=== PATIENT | male | born 1965 | race Caucasian/White ===

== ENCOUNTER 2023-01-12 07:38 | Outpatient (REF) | payer BC, SELFPAY ==
[2023-01-12 11:14] LABS: MANUAL DIFF FLAG NO
[2023-01-12 11:30] LABS: Basophils Absolute Auto 0.1 X10*3/uL (0.0-0.2); Eosinophils Absolute Auto 0.3 X10*3/uL (0.0-0.4); Eosinophils Percent Auto 3.5 % (0-4); Hematocrit 48.2 % (42.0-52.0); Hemoglobin 16.3 g/dl (14.0-18.0); Imm Gran Abs Auto 0.03 X10*3/uL (0.00-0.03); Imm Gran Pct Auto 0.3 % (0.0-0.4); Lymphocytes Absolute Auto 2.5 X10*3/uL (1.2-4.9); Lymphocytes Percent Auto 26.2 % (20-40); Mean Corpuscular HGB Conc 33.8 g/dl (31.0-36.0); Mean Corpuscular Hemoglobin 29.6 pg (27.0-33.0); Mean Corpuscular Volume 87.6 fL (80.0-98.0); Mean Platelet Volume 12.1 fL (9.4-12.4); Monocytes Absolute Auto 0.6 X10*3/uL (0.1-1.2); Monocytes Percent Auto 6.4 % (2-11); Neutrophils Absolute Auto 5.9 x10*3/uL (2.0-8.3); Neutrophils Percent Auto 62.6 % (45-73); Platelet Count 217 X10*3/uL (160-400); Red Cell Distribution Width 13.2 % (11.0-16.0); White Blood Count 9.4 X10*3/uL (4.8-10.8)
[2023-01-12 11:43] LABS: Estimated Average Glucose 252 mg/dL; Hemoglobin A1c % 10.4 %
[2023-01-12 11:48] LABS: Alanine Aminotransferase 23 U/L (0-40); Albumin Level 4.4 g/dL (3.5-5.0); Alkaline Phosphatase 83 U/L (39-117); Anion Gap 12 (12-20); Aspartate Amino Transferase 15 U/L (5-37); Bilirubin Total 0.7 mg/dL (0.0-1.0); Blood Urea Nitrogen 10 mg/dL (9-16); Calcium 9.6 mg/dL (8.4-10.2); Carbon Dioxide 24 mmol/L (22-29); Chloride 103 mmol/L (96-108); Cholesterol 127 mg/dL; Estimated Glomerular Filt Rate > 60; Glucose Fasting 318 mg/dL (60-99); HDL Cholesterol 36 mg/dL; LDL Cholesterol Calculated 53 mg/dl; Potassium 4.3 mmol/L (3.3-5.1); Sodium 135 mmol/L (135-145); Triglycerides 190 mg/dL
[2023-01-12 11:52] LABS: Appearance Urine Clear; Color Urine Yellow; Glucose Urine UA >=1000 mg/dL (Negative); Leukocyte Esterase Urine Negative (Negative); Nitrite Urine Negative (Negative); PH 5.5 (5.0-9.0); Specific Gravity - Urine >= 1.030 (1.005-1.025); UMIC TRIGGER UA YES; Urine Blood Negative (Negative); Urine Ketones Negative (Negative); Urine Protein Negative (Neg-Trace)
[2023-01-12 11:55] LABS: Bacteria Urine None Seen (None Seen); Hyaline Casts Urine 0-2 /LPF (0-2); RBC Urine 0-2 /HPF (0-2); Squamous Epithelial Cell Urine 0-2 /HPF (0-2); WBC Urine 0-5 /HPF (0-5)
[2023-01-12 12:06] LABS: Prostate Specific Antigen Scr 0.46 ng/mL (<0.05-4.0); TSH reflex Free T4 1.08 uIU/mL (0.32-4.0)
[2023-01-12 12:15] LABS: Microalbum/Creatinine Ratio Ur 6.7 ug/mg cr
== END 2023-01-12 07:39 | disposition home or self-care (01) ==
LOC: HO.WFDLDS 07:38
PROVIDERS: Visit Provider Family Medicine
DX: Z00.00 Encounter for general adult medical examination without abnormal findings (principal); Z12.5 Encounter for screening for malignant neoplasm of prostate; E11.9 Type 2 diabetes mellitus without complications; I10 Essential (primary) hypertension
CPT/HCPCS: 36415; 80053; 80061; 81001; 82043; 83036; 84153; 84443; 85025

== ENCOUNTER 2023-04-01 15:31 | Outpatient (AMB) | payer BC, SELFPAY ==
[2023-04-01 15:37] VITALS: BP 124/66; PULSE 94; RESP 12; TEMP 36.6; O2SAT 99; BMI 28.3
--- NOTE | 2023-04-01 15:37 | A.OFFPC_ITS ---
Vital Signs 04/01/23 15:37 Height 5 ft 11 in Weight 203 lb BMI 28.3 BP 124/66 Blood Pressure Location Rt brachial Position Sitting Respiration 12 Pulse 94 Pulse Source Pulse Oximeter Temp 97.9 F Temp Source Temporal Artery Scan Pulse Oximetry (%) 99 Oxygen Delivery Method Room Air Intake Visit Reasons: Follow-up diabetes Intake Note: Patient does not have any concerns at this time. Beauty Sales Consultant Required: No Accompanied by: Self / Same As Patient Allergies Seasonal Allergies Allergy (Mild, Verified 04/01/23 15:49) itchy, watery eyes Tobacco use date assessed: 01/18/23 Dental Screening Dental Screen Date: 04/01/23 Did you have a dental visit in the last 12 months?: Yes Did you have a dental problem in the last 6 months where you did not have access to dental care?: No Was dental information given to patient?: Patient has dentist HPI Follow-up diabetes HPI Details 57 y/o male presents to follow up uncontrolled diabetes. Had increased his Trulicity from 1.5 to 3.0 mg weekly and added glipizide. He continues metformin as prescribed. Last A1c 10.4%. A1c today 8.5%. He tests his blood sugars. He reports he is steady at about 250 average. HPI Comments History of Present Illness Details Documentation assistance for Darek Zhou MD, was provided by Augustus Healy, Quantitative Equity Head on 04/01/2023 4:44 PM EST. I, Dr. Zhou, have read, observed, and verified documentation. [facility] Medical History No pertinent past medical history Surgical History History of tonsillectomy Family History Father Diabetes Social History Household Members: Spouse Housing: House Are you a primary progressive care unit registered nurse to a significant other at home: No Do you presently have visiting nurse or other home services: No 75 years or older and lives alone: No Alcohol intake: current Patient Tobacco Use Status: Former Tobacco user Tobacco use type: Cigarette e-Cigarette/Vaping Use: Never Used service: No Current occupational status: employed Current occupation: inventory control Current occupational exposures/hazards: No Cognitive needs: No Hearing needs: No Vision needs: No Review of Systems Const Denies chills, Denies fatigue, Denies fever(s), Denies headache(s) and Denies weakness ENT Denies dizziness and Denies headache(s) Card Denies chest pain, Denies lightheadedness, Denies dyspnea and Denies other (Palpitations) Resp Denies cough, Denies dyspnea, Denies wheezing and Denies other ( shortness of breath) Musc Denies numbness and Denies tingling Neuro Denies dizziness, Denies headache(s), Denies numbness, Denies tingling, Denies paresthesias and Denies weakness Psych Denies anxiety and Denies depression Endo Denies fatigue, Denies polydipsia and Denies polyuria Aller/Immun Denies wheezing Physical exam (Primary Care) Vital Signs: Last Vital Signs Temp 97.9 F 04/01/23 15:37 Pulse 94 04/01/23 15:37 Resp 12 04/01/23 15:37 BP 124/66 04/01/23 15:37 Pulse Ox 99 04/01/23 15:37 Oxygen Delivery Method Room Air 04/01/23 15:37 BMI result Body Mass Index 28.3 Tobacco/Smoking Status: Tobacco use Status Tobacco use date assessed 01/18/23 04/01/23 15:52 Patient Tobacco Use Status Former Tobacco user 04/01/23 15:52 Tobacco use type Cigarette 04/01/23 15:52 e-Cigarette/Vaping Use Never Used 04/01/23 15:52 Const General: no acute distress and well developed Nutritional Appearance: well nourished Orientation[facility]consciousness: [facility]: Yes normocephalic and Yes atraumatic Eyes General: appearance normal, both eyes and all related structures Pupils: Equal, round and reactive pupils present EOM: EOMs intact bilaterally Resp Effort & Inspection: normal respiratory effort Auscultation: clear to auscultation bilaterally Cardio Rate: regular rate Rhythm: regular rhythm Heart sounds: S1 normal heart sound present, S2 normal heart sound present, no gallops, no murmurs and no rubs Neuro General: patient oriented x3 and gait normal Cranial nerves: Yes Equal, round and reactive pupils present Psych Affect: normal affect Assessment and Plan Assessment & Plan (1) Diabetes type 2, controlled: Code(s): E11.9 - Type 2 diabetes mellitus without complications Plan: A1c as improved from 10.4% down to 8.5% after increasing Trulicity and adding a low dose of glipizide. Much improved but still well above goal of less than 7.0%. Morning blood sugars still around 250. Will increase glipizide ER to 5 mg daily Continue metformin and Trulicity as prescribed A1c likely not at steady state and hopefully will be closer to goal at next visit. Will get him back in a couple of months for further adjustment. Will ask nurse navigator to help with diabetic teaching and working around barriers to care. Patient notes that his makes most of the meals and is not always on board with his diabetic diet. Advised that he allow to listen in for diabetic teaching. Orders: Referrals Nurse Navigator Referral E11.9 - Type 2 diabetes mellitus without complications Medications: Changed From glipizide ER 2.5 mg PO DAILY 30 days 30 tabs 3RF To glipizide ER 5 mg PO DAILY 30 days 30 tabs 3RF Coding Level of Care Code Est Pt Level 3 (90290) Diagnoses Diabetes type 2, controlled E11.9
== END 2023-04-01 16:51 | disposition home or self-care (01) ==
PROVIDERS: PCP Family Medicine; Visit Provider Family Medicine
DX: E11.9 Type 2 diabetes mellitus without complications (principal)
CPT/HCPCS: 99213

== ENCOUNTER 2023-05-24 15:42 | Outpatient (AMB) | payer BC, SELFPAY ==
[2023-05-24 15:46] VITALS: BP 124/78; PULSE 102; O2SAT 97; BMI 28.9
--- NOTE | 2023-05-24 15:46 | MHC.PC.OV ---
Vital Signs 05/24/23 15:46 Height 5 ft 11 in Weight 207 lb BMI 28.9 BP 124/78 Blood Pressure Location Lt brachial Position Sitting Pulse 102 H Pulse Source Pulse Oximeter Pulse Oximetry (%) 97 Oxygen Delivery Method Room Air Intake Visit Reasons: Follow-up diabetes Intake Note: Patient is here to follow up on diabetes today. Allergies Seasonal Allergies Allergy (Mild, Verified 05/24/23 15:48) itchy, watery eyes Tobacco use date assessed: 01/18/23 HPI Follow-up diabetes HPI Details 57 y/o male presents to f/u diabetes. Last A1c 04/01/23 8.5%. Had increased glipizide ER to 5mg daily. He is also on metformin and Trulicity as prescribed. A1c today 05/24/23 is 7.6%. He reports blood sugars at home have been trending upwards the past week. He reports he records blood sugars from 215-250s. Pt reports ongoing L ear discomfort. [facility] Medical History No pertinent past medical history Surgical History History of tonsillectomy Family History Father Diabetes Social History Household Members: Spouse Housing: House Are you a primary patient care secretary to a significant other at home: No Do you presently have visiting nurse or other home services: No 75 years or older and lives alone: No Alcohol intake: current Patient Tobacco Use Status: Former Tobacco user Tobacco use type: Cigarette e-Cigarette/Vaping Use: Never Used service: No Current occupational status: employed Current occupation: inventory control Current occupational exposures/hazards: No Cognitive needs: No Hearing needs: No Vision needs: No Questionnaire Thrive Questionnaire Date Thrive assessed: 05/24/23 I am a: Patient What is your living situation today?: I have a steady place to live Within the past 12 months, did the food you bought not last and you didn't have the money to get more?: Never true Within the past 12 months, did you worry whether your food would run out before you got money to buy more?: Never true Do you have trouble paying for medicines?: No Do you have trouble getting transportation to medical appointments?: No Do you have trouble paying your heating and electricity bill?: No Do you have trouble taking care of your child, family member or friend?: No Do you have trouble with day-to-day activities such as bathing, preparing meals, shopping, managing finances, etc.?: No Are you currently unemployed and looking for a job?: No Are you interested in more education?: No Review of Systems Const Denies chills, Denies fatigue, Denies fever(s), Denies headache(s) and Denies weakness ENT Denies dizziness and Denies headache(s) Card Denies dyspnea Resp Denies cough, Denies dyspnea, Denies wheezing and Denies other (shortness of breath) Musc Denies numbness and Denies tingling Neuro Denies dizziness, Denies headache(s), Denies numbness, Denies tingling and Denies weakness Psych Denies anxiety and Denies depression Endo Denies fatigue Aller/Immun Denies wheezing Physical exam (Primary Care) Vital Signs: Last Vital Signs Pulse 102 H 05/24/23 15:46 BP 124/78 05/24/23 15:46 Pulse Ox 97 05/24/23 15:46 Oxygen Delivery Method Room Air 05/24/23 15:46 BMI result Body Mass Index 28.9 Tobacco/Smoking Status: Tobacco use Status Tobacco use date assessed 01/18/23 05/24/23 15:50 Patient Tobacco Use Status Former Tobacco user 05/24/23 15:50 Tobacco use type Cigarette 05/24/23 15:50 e-Cigarette/Vaping Use Never Used 05/24/23 15:50 Thrive Assessment: Date of Thrive Assessment Date Thrive assessed 05/24/23 05/24/23 15:57 Const General: well developed; No acute distress Nutritional Appearance: well nourished Orientation/consciousness: [facility]: Yes normocephalic and Yes atraumatic Eyes General: appearance normal, both eyes and all related structures Pupils: Equal, round and reactive pupils present EOM: EOMs intact bilaterally Resp Effort & Inspection: normal respiratory effort Neuro General: patient oriented x3 and gait normal Cranial nerves: Yes Equal, round and reactive pupils present Psych Affect: normal affect Results AMB Hemoglobin A1c AMB Hemoglobin A1c 7.6 % Last Edit by Silke Yung CMA on 05/24/23 16:09 Results Reviewed Results Reviewed: Laboratory Last Values Hgb A1c (Clinic) 7.6 % (4.0-6.0) H 05/24/23 16:03 Assessment and Plan Assessment & Plan (1) Diabetes type 2, controlled: Code(s): E11.9 - Type 2 diabetes mellitus without complications Plan: Improving?diabetic?control.??Goal?is?A1c?less?than?7.0%. His?morning?blood?sugars?are?around?200?still Will?increase?Trulicity?from?3.0-4.5?mg?per?week Continue?glipizide?and?metformin?as?prescribed He?would?greatly?benefit?from?diabetic?teaching.??Has?not?heard?from?the?nurse?navigator?so?I?have?made?a?new?referral.??Will?benefit?further?if?his??can?sit?in?on?that?encounter?as?she?makes?all?of?his?meals. (2) Discomfort of left ear: Code(s): H92.02 - Otalgia, left ear Plan: Still?has?irritated?skin?at?left?pinna Appears?as?mild?dermatitis Will?give?him?a?script?for?betamethasone?ointment If?not?resolved,?he?will?let?me?know?and?I?will?refer?him?to?Dermatology Orders: Orders AMB Hemoglobin A1c Today Z13.9 - Encounter for screening, unspecified Referrals Nurse Navigator Referral E11.9 - Type 2 diabetes mellitus without complications Medications: New betamethasone valerate 0.1% 1 appl topical BID PRN 15 grams 0RF skin irritation 14 days Changed From dulaglutide (Trulicity) 3 mg (0.5 mL) subcut QWEEK 28 days 2 mL 3RF To dulaglutide 4.5 mg (0.5 mL) subcut QWEEK 28 days 2 mL 3RF Coding Level of Care Code Est Pt Level 3 (56987) Diagnoses Diabetes type 2, controlled E11.9 Discomfort of left ear H92.02
== END 2023-05-24 16:17 | disposition home or self-care (01) ==
PROVIDERS: PCP Family Medicine; Visit Provider Family Medicine
DX: E11.9 Type 2 diabetes mellitus without complications (principal); H92.02 Otalgia, left ear
CPT/HCPCS: 83036; 99213

== ENCOUNTER 2023-08-23 16:18 | Outpatient (AMB) | payer BC, SELFPAY ==
[2023-08-23 16:33] VITALS: BP 126/74; PULSE 68; O2SAT 97; BMI 29.1
--- NOTE | 2023-08-23 16:33 | MHC.PC.OV ---
Vital Signs 08/23/23 16:33 Height 5 ft 11 in Weight 209 lb BMI 29.1 BP 126/74 Blood Pressure Location Lt brachial Position Sitting Pulse 68 Pulse Source Pulse Oximeter Pulse Oximetry (%) 97 Oxygen Delivery Method Room Air Intake Visit Reasons: f/u diabetes Intake Note: Patient is here to follow up on his diabetes. Allergies Seasonal Allergies Allergy (Mild, Verified 08/23/23 16:34) itchy, watery eyes Tobacco use date assessed: 08/23/23 Dental Screening Dental Screen Date: 08/23/23 Did you have a dental visit in the last 12 months?: Yes Did you have a dental problem in the last 6 months where you did not have access to dental care?: No Was dental information given to patient?: Patient has dentist HPI f/u diabetes HPI Details 57 y/o male presents to f/u diabetes. Last A1c in May 7.6% which had been improving. A1c today 08/23/23 is 8.3%. He is on metformin 1000mg b.i.d, dulaglutide 4.5mg and glipizide 5mg daily. Pt reports L ear irritation. COUNT INCLUDES [facility] Medical History No pertinent past medical history Surgical History History of tonsillectomy Family History Father Diabetes Social History Household Members: Spouse Housing: House Are you a primary family day carer to a significant other at home: No Do you presently have visiting nurse or other home services: No 75 years or older and lives alone: No Alcohol intake: current Patient Tobacco Use Status: Former Tobacco user Tobacco use type: Cigarette e-Cigarette/Vaping Use: Never Used service: No Current occupational status: employed Current occupation: inventory control Current occupational exposures/hazards: No Cognitive needs: No Hearing needs: No Vision needs: No Questionnaire PHQ-9 Over the last 2 weeks, how often have you been bothered by any of the following problems? 1. Little interest or pleasure in doing things: not at all 2. Feeling down, depressed, or hopeless: not at all 3. Trouble falling or staying asleep, or sleeping too much: not at all 4. Feeling tired or having little energy: not at all 5. Poor appetite or overeating: not at all 6. Feeling bad about yourself - or that you are a failure or have let yourself or your family down: not at all 7. Trouble concentrating on things, such as reading the newspaper or watching television: not at all 8. Moving or speaking so slowly that other people could have noticed. Or the opposite - being so fidgety or restless that you have been moving around a lot more than usual: not at all 9. Thoughts that you would be better off or of hurting yourself in some way: not at all Total score: 0 Source: Developed by Drs. Chandrakant Vela, Laurel Yeboah, Willian Carney and colleagues, with an educational charissa from [employer]. Thrive Questionnaire Date Thrive assessed: 05/24/23 I am a: Patient What is your living situation today?: I have a steady place to live Within the past 12 months, did the food you bought not last and you didn't have the money to get more?: Never true Within the past 12 months, did you worry whether your food would run out before you got money to buy more?: Never true Do you have trouble paying for medicines?: No Do you have trouble getting transportation to medical appointments?: No Do you have trouble paying your heating and electricity bill?: No Do you have trouble taking care of your child, family member or friend?: No Do you have trouble with day-to-day activities such as bathing, preparing meals, shopping, managing finances, etc.?: No Are you currently unemployed and looking for a job?: No Are you interested in more education?: No THRIVE Score: 0 AUDIT C Alcohol Use Questionnaire (AUDIT-C) 1. How often do you have a drink containing alcohol?: Monthly or less 2. How many drinks containing alcohol do you have on a typical day when you are drinking?: 3 or 4 3. How often do you have six or more drinks on one occasion?: Never Total Score: 2 YULI-7 AMB Questionnaire YULI-7 Date YULI - 7 assessed: 08/23/23 Feeling nervous, anxious, or on edge: 0 = Not at all Not being able to stop or control worryin = Not at all Worrying too much about different things: 0 = Not at all Trouble relaxin = Not at all Being so restless that it is hard to sit still: 0 = Not at all Becoming easily annoyed or irritable: 0 = Not at all Feeling afraid as if something awful might happen: 0 = Not at all Total YULI-7 score (0-4 normal; 5-9 mild; 10-14 moderate; 15-21 severe): 0 Source: Developed by Drs. Chandrakant Vela, Laurel Yeboah, Willian Carney and colleagues, with an educational charissa from [employer]. Physical exam (Primary Care) Vital Signs: Last Vital Signs Pulse 68 08/23/23 16:33 BP 126/74 08/23/23 16:33 Pulse Ox 97 08/23/23 16:33 Oxygen Delivery Method Room Air 08/23/23 16:33 BMI result Body Mass Index 29.1 Tobacco/Smoking Status: Tobacco use Status Tobacco use date assessed 08/23/23 08/23/23 16:35 Patient Tobacco Use Status Former Tobacco user 08/23/23 16:35 Tobacco use type Cigarette 08/23/23 16:35 e-Cigarette/Vaping Use Never Used 08/23/23 16:35 PHQ-9: PHQ-9 Score PHQ-9: Total score 0 08/23/23 16:41 Thrive Assessment: Date of Thrive Assessment Date Thrive assessed 05/24/23 08/23/23 16:35 Results AMB Hemoglobin A1c AMB Hemoglobin A1c 8.3 % Last Edit by Silke Yung CMA on 08/23/23 17:03 Assessment and Plan Assessment & Plan (1) Uncontrolled diabetes mellitus with hyperglycemia: Code(s): E11.65 - Type 2 diabetes mellitus with hyperglycemia Plan: A1c?has?been?improving. A1c?today?has?increased?to?8.3%. Goal?is?less?than?7.0%.??Poor/uncontrolled?diabetes?despite?multiple?medications. Will?refer?him?to?endocrinology Increased?glipizide?to?10?mg?daily?and?continued?his?other?medications?as?prescribed He?received?mail?correspondence?from?the?nurse?navigator?team?regarding?diabetes?and?I?asked?him?to?call?them?back. Last?eye?exam?was?in?May.??No?diabetic?retinopathy.??Up-to-date.?Remind?patient?to?follow-up?with?ophthalmology?each?year (2) Discomfort of left ear: Code(s): H92.02 - Otalgia, left ear Orders: Orders AMB Hemoglobin A1c Today Z13.9 - Encounter for screening, unspecified Referrals Endocrinology Referral E11.65 - Type 2 diabetes mellitus with hyperglycemia Medications: Changed From glipizide ER 5 mg PO DAILY 30 days 30 tabs 3RF To glipizide ER 10 mg PO DAILY 30 tabs 3RF 30 days Coding Level of Care Code Est Pt Level 3 (80951) Diagnoses Uncontrolled diabetes mellitus with hyperglycemia E11.65 Discomfort of left ear H92.02
== END 2023-08-23 17:01 | disposition home or self-care (01) ==
PROVIDERS: PCP Family Medicine; Visit Provider Family Medicine
DX: E11.65 Type 2 diabetes mellitus with hyperglycemia (principal); H92.02 Otalgia, left ear
CPT/HCPCS: 83036; 99213

== ENCOUNTER 2023-11-22 16:22 | Outpatient (AMB) | payer BC, SELFPAY ==
[2023-11-22 16:28] VITALS: BP 128/72; PULSE 96; O2SAT 97; BMI 28.7
--- NOTE | 2023-11-22 16:28 | MHC.PC.OV ---
Vital Signs 11/22/23 16:28 Height 5 ft 11 in Weight 206 lb BMI 28.7 BP 128/72 Blood Pressure Location Lt brachial Position Sitting Pulse 96 Pulse Source Pulse Oximeter Pulse Oximetry (%) 97 Oxygen Delivery Method Room Air Intake Visit Reasons: f/u diabetes Intake Note: Patient is here today to follow up on diabetes. Allergies Seasonal Allergies Allergy (Mild, Verified 11/22/23 16:31) itchy, watery eyes Tobacco use date assessed: 08/23/23 Dental Screening Dental Screen Date: 11/22/23 HPI f/u diabetes HPI Details 58 y/o male presents to f/u diabetes. Had increased his glipizide ER from 5mg daily to 10mg daily and continued his other meds as prescribed. Last A1c 08/23/23 8.3%. A1c today 11/22/23 is 7.5%. He is on metformin 1000mg, glipizide 10mg, dulaglutide 4.5mg. Pt also on lantus 14 units daily. Pt notes daytime blood sugars range from 160-200s. He denies any low blood sugars. [facility] Medical History No pertinent past medical history Surgical History History of tonsillectomy Family History Father Diabetes Social History Household Members: Spouse Housing: House Are you a primary career technical education teacher to a significant other at home: No Do you presently have visiting nurse or other home services: No 75 years or older and lives alone: No Alcohol intake: current Patient Tobacco Use Status: Former Tobacco user Tobacco use type: Cigarette e-Cigarette/Vaping Use: Never Used service: No Current occupational status: employed Current occupation: inventory control Current occupational exposures/hazards: No Cognitive needs: No Hearing needs: No Vision needs: No Questionnaire Thrive Questionnaire Date Thrive assessed: 05/24/23 YULI-7 AMB Questionnaire YULI-7 Date YULI - 7 assessed: 08/23/23 Source: Developed by Drs. Chandrakant Vela, Laurel Yeboah, Willian Carney and colleagues, with an educational charissa from [employer]. Review of Systems Const Denies chills, Denies fatigue, Denies fever(s), Denies headache(s) and Denies weakness ENT Denies dizziness and Denies headache(s) Card Denies chest pain, Denies lightheadedness, Denies dyspnea and Denies other (Palpitations) Resp Denies cough, Denies dyspnea, Denies wheezing and Denies other ( shortness of breath) Musc Denies numbness and Denies tingling Neuro Denies dizziness, Denies headache(s), Denies numbness, Denies tingling, Denies paresthesias and Denies weakness Psych Denies anxiety and Denies depression Endo Denies fatigue Aller/Immun Denies wheezing Physical exam (Primary Care) Vital Signs: Last Vital Signs Pulse 96 11/22/23 16:28 BP 128/72 11/22/23 16:28 Pulse Ox 97 11/22/23 16:28 Oxygen Delivery Method Room Air 11/22/23 16:28 BMI result Body Mass Index 28.7 Tobacco/Smoking Status: Tobacco use Status Tobacco use date assessed 08/23/23 11/22/23 16:30 Patient Tobacco Use Status Former Tobacco user 11/22/23 16:30 Tobacco use type Cigarette 11/22/23 16:30 e-Cigarette/Vaping Use Never Used 11/22/23 16:30 Thrive Assessment: Date of Thrive Assessment Date Thrive assessed 05/24/23 11/22/23 16:30 Const General: no acute distress and well developed Nutritional Appearance: well nourished Orientation/consciousness: patient oriented x3 [facility] Head: Yes normocephalic and Yes atraumatic Eyes General: appearance normal, both eyes and all related structures Pupils: Equal, round and reactive pupils present EOM: EOMs intact bilaterally Resp Effort & Inspection: normal respiratory effort Auscultation: clear to auscultation bilaterally Cardio Rate: regular rate Rhythm: regular rhythm Heart sounds: S1 normal heart sound present, S2 normal heart sound present, no gallops, no murmurs and no rubs Neuro General: patient oriented x3 and gait normal Cranial nerves: Yes Equal, round and reactive pupils present Psych Affect: normal affect Results AMB Hemoglobin A1c AMB Hemoglobin A1c 7.5 % Last Edit by Silke Yung CMA on 11/22/23 17:02 Results Reviewed Results Reviewed: Laboratory Last Values Hgb A1c (Clinic) 7.5 % (4.0-6.0) H 11/22/23 16:33 Assessment and Plan Assessment & Plan (1) Diabetes type 2, controlled: Code(s): E11.9 - Type 2 diabetes mellitus without complications Plan: A1c?is?heading?in?the?right?direction;?7.5%.??Goal?is?less?than?7.0% Taking?all?medications?as?prescribed?and?recently?saw?his?all source collection manager. Morning?blood?sugars?are?still?high?and?he?never?has?low?blood?sugars. I?am?having?him?increase?his?Lantus?from?14?units?daily?to?16?units?daily?and?continuing?his?other?medications?as?prescribed. He?has?an?upcoming?appointment?with?endocrinology?next?month. Encouraged?diabetic?diet Briefly?discussed?Lexus?system?and?patient?says?he?discussed?this?with?the?all source collection manager?and?is?still?thinking?about?it. Orders: Orders AMB Hemoglobin A1c Today Z13.9 - Encounter for screening, unspecified Medications: New insulin glargine (Lantus Solostar U-100 Insulin) 16 units (0.16 mL) subcut QPM 30 days 6 mL 0RF Coding Level of Care Code Est Pt Level 3 (86248) Diagnoses Diabetes type 2, controlled E11.9
== END 2023-11-22 17:16 | disposition home or self-care (01) ==
PROVIDERS: PCP Family Medicine; Visit Provider Family Medicine
DX: E11.9 Type 2 diabetes mellitus without complications (principal)
CPT/HCPCS: 83036; 99213

== ENCOUNTER 2024-02-21 16:16 | Outpatient (AMB) | payer BC, SELFPAY ==
[2024-02-21 16:18] VITALS: BP 108/70; PULSE 101; O2SAT 97; BMI 28.4
--- NOTE | 2024-02-21 16:18 | A.OFFPC_ITS ---
Vital Signs 02/21/24 16:18 Height 5 ft 11 in Weight 204 lb BMI 28.4 BP 108/70 Blood Pressure Location Lt brachial Position Sitting Pulse 101 H Pulse Source Pulse Oximeter Pulse Oximetry (%) 97 Oxygen Delivery Method Room Air Intake Visit Reasons: f/u diabetes Intake Note: Jose is a 58 year old male who presents to the office today for a follow up on his diabetes. A1C done in the office. Pt states he is overall feeling well. Allergies Seasonal Allergies Allergy (Mild, Verified 02/21/24 16:21) itchy, watery eyes Medication List - Last Reconciled 02/21/24 by Darek Zhou MD atorvastatin 20 mg PO DAILY 90 days betamethasone valerate 0.1% 1 appl topical BID PRN 14 days glipizide ER 10 mg PO DAILY 30 days insulin glargine (Lantus Solostar U-100 Insulin) 16 units (0.16 mL) subcut QPM 30 days loratadine (Allergy Relief (loratadine)) 10 mg PO DAILY 90 days metformin ER 1,000 mg (2 x 500 mg) PO BID 90 days semaglutide (Ozempic) 2 mg (0.75 mL) subcut QWEEK 28 days Tobacco use date assessed: 02/21/24 Dental Screening Dental Screen Date: 02/21/24 Did you have a dental visit in the last 12 months?: Yes Did you have a dental problem in the last 6 months where you did not have access to dental care?: No Was dental information given to patient?: Patient has dentist HPI f/u diabetes HPI Details 58 y/o male presents to f/u diabetes. Had increased his Lantus from 14 units daily to 16 units daily. Last A1c 11/22/23 7.5%. A1c today 02/21/24 6.3%. Continues to take metformin 500mg b.i.d, Ozempic, Lantus 16 units. He states he is tolerating his medication regimen well. HPI Comments History of Present Illness Details Documentation assistance for Darek Zhou MD, was provided by Augustus Healy, Reconciling Clerk on 02/21/2024 at 4:47 PM EST. I, Dr. Zhou, have read, observed, and verified documentation. [facility] Medical History No pertinent past medical history Surgical History History of tonsillectomy Family History Father Diabetes Social History Household Members: Spouse Housing: House Are you a primary pharmacy care coordinator to a significant other at home: No Do you presently have visiting nurse or other home services: No 75 years or older and lives alone: No Alcohol intake: current Patient Tobacco Use Status: Former Tobacco user Tobacco use type: Cigarette e-Cigarette/Vaping Use: Never Used service: No Current occupational status: employed Current occupation: inventory control Current occupational exposures/hazards: No Cognitive needs: No Hearing needs: No Vision needs: No Questionnaire PHQ-9 Over the last 2 weeks, how often have you been bothered by any of the following problems? 1. Little interest or pleasure in doing things: not at all 2. Feeling down, depressed, or hopeless: not at all 3. Trouble falling or staying asleep, or sleeping too much: not at all 4. Feeling tired or having little energy: not at all 5. Poor appetite or overeating: not at all 6. Feeling bad about yourself - or that you are a failure or have let yourself or your family down: not at all 7. Trouble concentrating on things, such as reading the newspaper or watching te levision: not at all 8. Moving or speaking so slowly that other people could have noticed. Or the opposite - being so fidgety or restless that you have been moving around a lot more than usual: not at all 9. Thoughts that you would be better off or of hurting yourself in some way: not at all Total score: 0 Source: Developed by Drs. Chandrakant Vela, Laurel Yeboah, Willian Carney and colleagues, with an educational charissa from [employer]. Thrive Questionnaire Date Thrive assessed: 02/21/24 I am a: Patient What is your living situation today?: I have a steady place to live Within the past 12 months, did the food you bought not last and you didn't have the money to get more?: Never true Within the past 12 months, did you worry whether your food would run out before you got money to buy more?: Never true Do you have trouble paying for medicines?: No Do you have trouble getting transportation to medical appointments?: No Do you have trouble paying your heating and electricity bill?: No Do you have trouble taking care of your child, family member or friend?: No Do you have trouble with day-to-day activities such as bathing, preparing meals, shopping, managing finances, etc.?: No Are you currently unemployed and looking for a job?: No Are you interested in more education?: No THRIVE Score: 0 AUDIT C Alcohol Use Questionnaire (AUDIT-C) 1. How often do you have a drink containing alcohol?: Monthly or less 2. How many drinks containing alcohol do you have on a typical day when you are drinking?: 3 or 4 3. How often do you have six or more drinks on one occasion?: Never Total Score: 2 YULI-7 AMB Questionnaire YULI-7 Date YULI - 7 assessed: 02/21/24 Feeling nervous, anxious, or on edge: 0 = Not at all Not being able to stop or control worryin = Not at all Worrying too much about different things: 0 = Not at all Trouble relaxin = Not at all Being so restless that it is hard to sit still: 0 = Not at all Becoming easily annoyed or irritable: 0 = Not at all Feeling afraid as if something awful might happen: 0 = Not at all Total YULI-7 score (0-4 normal; 5-9 mild; 10-14 moderate; 15-21 severe): 0 Source: Developed by Drs. Chandrakant Vela, Laurel Yeboah, Willian Carney and colleagues, with an educational charissa from [employer]. Review of Systems Const Denies chills, Denies fatigue, Denies fever(s), Denies headache(s) and Denies weakness ENT Denies dizziness and Denies headache(s) Card Denies dyspnea Resp Denies cough, Denies dyspnea, Denies wheezing and Denies other (shortness of breath) Musc Denies numbness and Denies tingling Neuro Denies dizziness, Denies headache(s), Denies numbness, Denies tingling and Denies weakness Psych Denies anxiety and Denies depression Endo Denies fatigue Aller/Immun Denies wheezing Physical exam (Primary Care) Vital Signs: Last Vital Signs Pulse 101 H 02/21/24 16:18 BP 108/70 02/21/24 16:18 Pulse Ox 97 02/21/24 16:18 Oxygen Delivery Method Room Air 02/21/24 16:18 BMI result Body Mass Index 28.4 Tobacco/Smoking Status: Tobacco use Status Tobacco use date assessed 02/21/24 02/21/24 16:25 Patient Tobacco Use Status Former Tobacco user 02/21/24 16:18 Tobacco use type Cigarette 02/21/24 16:18 e-Cigarette/Vaping Use Never Used 02/21/24 16:18 PHQ-9: PHQ-9 Score PHQ-9: Total score 0 02/21/24 16:44 Thrive Assessment: Date of Thrive Assessment Date Thrive assessed 02/21/24 02/21/24 16:25 Const General: well developed; No acute distress Nutritional Appearance: well nourished Orientation/consciousness: patient oriented x3 HENMT Head: Yes normocephalic and Yes atraumatic Eyes General: appearance normal, both eyes and all related structures Pupils: Equal, round and reactive pupils present EOM: EOMs intact bilaterally Resp Effort & Inspection: normal respiratory effort Neuro General: patient oriented x3 and gait normal Cranial nerves: Yes Equal, round and reactive pupils present Psych Affect: normal affect Results AMB Hemoglobin A1c AMB Hemoglobin A1c 6.3 % Last Edit by Mildred Rodriguez CMA on 02/21/24 16:34 Results Reviewed Results Reviewed: Laboratory Last Values Hgb A1c (Clinic) 6.3 % (4.0-6.0) H 02/21/24 16:33 Assessment and Plan Assessment & Plan (1) Diabetes type 2, controlled: Code(s): E11.9 - Type 2 diabetes mellitus without complications Plan: A1c?today?6.3%.??Goal?is?less?than?7.0% Good?control Continue?current?medication?regimen Encouraged?exercise He?is?a?little?overdue?for?an?eye?exam?and?I?reminded?him?to?call?his?eye?doctor . Follow-up?with??[facility]?recommended Orders: Orders AMB Hemoglobin A1c Today E11.65 - Type 2 diabetes mellitus with hyperglycemia Comprehensive [place]. Panel Fast Today Z00.00 - Encounter for general adult medical examination without abnormal findings Lipid Panel Today Z00.00 - Encounter for general adult medical examination without abnormal findings Prostate Specific Antigen Scr Today Z12.5 - Encounter for screening for malignant neoplasm of prostate UA and rflx microscopic Today Z00.00 - Encounter for general adult medical examination without abnormal findings Microalbumin, Random (w Creat) Today I10 - Essential (primary) hypertension TSH reflex Free T4 Today Z00.00 - Encounter for general adult medical examination without abnormal findings Medications: Changed From insulin glargine (Lantus Solostar U-100 Insulin) 16 units (0.16 mL) subcut QPM 30 days 6 mL 0RF To insulin glargine (Lantus Solostar U-100 Insulin) 20 units (0.2 mL) subcut QPM 30 days 6 mL 0RF Coding Level of Care Code Est Pt Level 3 (19799) Diagnoses Diabetes type 2, controlled E11.9
== END 2024-02-21 17:04 | disposition home or self-care (01) ==
PROVIDERS: PCP Family Medicine; Visit Provider Family Medicine
DX: E11.9 Type 2 diabetes mellitus without complications (principal); E11.65 Type 2 diabetes mellitus with hyperglycemia
CPT/HCPCS: 83036; 99213

== ENCOUNTER 2024-06-08 07:41 | Outpatient (REF) | payer BC, SELFPAY ==
[2024-06-08 11:31] LABS: Appearance Urine Clear; Color Urine Yellow; Glucose Urine UA Negative (Negative); Leukocyte Esterase Urine Negative (Negative); Nitrite Urine Negative (Negative); PH 6.5 (5.0-9.0); Urine Blood Negative (Negative); Urine Ketones Negative (Negative); Urine Protein Negative (Neg-Trace)
[2024-06-08 12:06] LABS: Alanine Aminotransferase 18 U/L (0-40); Albumin Level 4.5 g/dL (3.5-5.0); Alkaline Phosphatase 61 U/L (39-117); Anion Gap 15 (12-20); Aspartate Amino Transferase 24 U/L (5-37); Bilirubin Total 0.6 mg/dL (0.0-1.0); Blood Urea Nitrogen 10 mg/dL (9-16); Calcium 9.8 mg/dL (8.4-10.2); Carbon Dioxide 24 mmol/L (22-29); Chloride 104 mmol/L (96-108); Cholesterol 109 mg/dL (<200); Estimated Glomerular Filt Rate > 60; Glucose Fasting 125 mg/dL (60-99); HDL Cholesterol 34 mg/dL (>40); LDL Cholesterol Calculated 54 mg/dL (<100); Potassium 4.5 mmol/L (3.3-5.1); Sodium 138 mmol/L (135-145); Total Protein 7.3 g/dL (6.5-8.0); Triglycerides 105 mg/dL (<150)
[2024-06-08 12:11] LABS: Prostate Specific Antigen Scr 0.33 ng/mL (<0.05-4.0)
[2024-06-08 12:13] LABS: Creatinine Urine 33.43 mg/dL; Microalbumin Urine < 5.0 mg/L
[2024-06-08 12:26] LABS: TSH reflex Free T4 1.38 uIU/mL (0.32-4.0)
== END 2024-06-08 07:42 | disposition home or self-care (01) ==
LOC: HO.WFDLDS 07:41
PROVIDERS: Visit Provider Family Medicine
DX: Z00.00 Encounter for general adult medical examination without abnormal findings (principal); I10 Essential (primary) hypertension; Z12.5 Encounter for screening for malignant neoplasm of prostate
CPT/HCPCS: 36415; 80053; 80061; 81003; 82043; 82570; 84153; 84443

== ENCOUNTER 2024-06-15 16:06 | Outpatient (AMB) | payer BC, SELFPAY ==
--- NOTE | 2024-06-15 16:16 | A.OFFPC_ITS ---
Vital Signs 06/15/24 16:22 Height 5 ft 11 in Weight 204 lb 6 oz BMI 28.5 BP 102/70 Blood Pressure Location Rt brachial Position Sitting Pulse 92 Pulse Source Pulse Oximeter Pulse Oximetry (%) 97 Oxygen Delivery Method Room Air Intake Visit Reasons: CPE with f/u labs and health maint. 30 mins Intake Note: Physical. Needs a refill on Ozempic he is having trouble getting refills on time. Composition Molder Required: No Allergies Seasonal Allergies Allergy (Mild, Verified 06/15/24 16:16) itchy, watery eyes Tobacco use date assessed: 02/21/24 Dental Screening Dental Screen Date: 02/21/24 HPI HPI Comments History of Present Illness Details This is a 58-year-old male with a past medical history of type 2 di abetes and hyperlipidemia presenting for a physical exam. Type II diabetes-followed by [facility] endocrinology. His fasting blood sugars have been 120 or less. He is compliant with his medications. His most recent hemoglobin A1c was 6.3%. He is seeing his diesel pile hammer operator at the end of the month, and he says they would like him to do the A1c there. He needs refills on Ozempic. He admits he could be exercising more, but he is following a healthy diet. Colonoscopy done in April at [facility]. Due to suboptimal prep they recommended repeat in 5 years, per patient. Patient received Tdap vaccine today. He will schedule the pneumonia vaccine at his pharmacy. He received the influenza vaccine and COVID-19 booster. Hyperlipidemia is treated with atorvastatin 20 mg daily. LDL is under 100. Patient is a nonsmoker. ROS: Constitutional: No unexplained weight loss, fever, chills, fatigue or night sweats. Eyes: No vision changes, blurry vision, double vision, eye pain, eye redness, eye discharge. ENT: No hearing loss, sneezing, congestion, runny nose or sore throat. Respiratory: No shortness of breath, cough or sputum production. Cardiovascular: No chest pain, chest pressure or chest discomfort. No palpitations or pedal edema. Gastrointestinal: No anorexia, nausea, vomiting or diarrhea. No abdominal pain or blood in stool. Genitourinary: No dysuria, hematuria, urinary frequency. Neurologic: No headache, dizziness, syncope, unilateral weakness, ataxia, numbness or tingling in the extremities. Musculoskeletal: No muscle pain, back pain or swelling. +Minor aches and pains. Hematologic/Lymphatics: No bleeding or bruising. No painful lymph nodes. Skin: No rash or itching. Endocrine: No cold or heat intolerance. No polyuria or polydipsia. Psychiatric: No depression or anxiety. No SI/HI. Physical exam: Constitutional: Alert, in no distress. Head: Normocephalic. Eyes: Pupils are equal, round and reactive to light. Extraocular muscles intact. Ear, Nose and Throat: Canals clear. TMs normal. Normal nasal mucosa. No nasal discharge. No oral lesions. Neck: Supple, Full range of motion. No lymphadenopathy. No palpable thyroid masses. Respiratory: Clear to auscultation. Cardiovascular: S1 S2 regular. No murmurs. No carotid bruits. Gastrointestinal: Abdomen soft, non-tender, non-distended. Normal bowel sounds. No palpable masses. Genitourinary: Deferred. Neurologic: No focal neurological deficits. Symmetric patellar reflexes. Moves all extremities spontaneously. Sensation intact bilaterally. Skin: No rashes Musculoskeletal: No gross deformities. Normal range of motion. Extremities: Warm and well perfused. No clubbing, cyanosis or edema. 3+ peripheral pulses bilaterally. Psychiatric: Normal mood and affect [facility] Medical History (Updated 06/15/24 @ 16:53 by ROBBIE Kendall) Uncontrolled diabetes mellitus with hyperglycemia No pertinent past medical history Surgical History History of tonsillectomy Family History Father Diabetes Social History Household Members: Spouse Housing: House Are you a primary care specialist to a significant other at home: No Do you presently have visiting nurse or other home services: No 75 years or older and lives alone: No Alcohol intake: current Patient Tobacco Use Status: Former Tobacco user Tobacco use type: Cigarette e-Cigarette/Vaping Use: Never Used service: No Current occupational status: employed Current occupation: inventory control Current occupational exposures/hazards: No Cognitive needs: No Hearing needs: No Vision needs: No Questionnaire PHQ-9 Over the last 2 weeks, how often have you been bothered by any of the following problems? 1. Little interest or pleasure in doing things: not at all 2. Feeling down, depressed, or hopeless: not at all 3. Trouble falling or staying asleep, or sleeping too much: not at all 4. Feeling tired or having little energy: not at all 5. Poor appetite or overeating: not at all 6. Feeling bad about yourself - or that you are a failure or have let yourself or your family down: not at all 7. Trouble concentrating on things, such as reading the newspaper or watching television: not at all 8. Moving or speaking so slowly that other people could have noticed. Or the opposite - being so fidgety or restless that you have been moving around a lot more than usual: not at all 9. Thoughts that you would be better off or of hurting yourself in some way: not at all Total score: 0 Source: Developed by Drs. Chandrakant Vela, Laurel Yeboah, Willian Carney and colleagues, with an educational charissa from [employer]. Thrive Questionnaire Date Thrive assessed: 06/12/24 I am a: Patient What is your living situation today?: I have a steady place to live Within the past 12 months, did the food you bought not last and you didn't have the money to get more?: Never true Within the past 12 months, did you worry whether your food would run out before you got money to buy more?: Never true Do you have trouble paying for medicines?: No Do you have trouble getting transportation to medical appointments?: No Do you have trouble paying your heating and electricity bill?: No Do you have trouble taking care of your child, family member or friend?: No Do you have trouble with day-to-day activities such as bathing, preparing meals, shopping, managing finances, etc.?: No Are you currently unemployed and looking for a job?: No Are you interested in more education?: No Please select the resources that you would like help with: None Currently or been in a relationship where the following occur: No concerns reported THRIVE Score: 0 AUDIT C Alcohol Use Questionnaire (AUDIT-C) 1. How often do you have a drink containing alcohol?: 2-4 times a month 2. How many drinks containing alcohol do you have on a typical day when you are drinking?: 3 or 4 Total Score: 3 YULI-7 AMB Questionnaire YULI-7 Date YULI - 7 assessed: 02/21/24 Feeling nervous, anxious, or on edge: 0 = Not at all Not being able to stop or control worryin = Not at all Worrying too much about different things: 0 = Not at all Trouble relaxin = Not at all Being so restless that it is hard to sit still: 0 = Not at all Becoming easily annoyed or irritable: 0 = Not at all Feeling afraid as if something awful might happen: 0 = Not at all Total YULI-7 score (0-4 normal; 5-9 mild; 10-14 moderate; 15-21 severe): 0 Source: Developed by Drs. Chandrakant Vela, Laurel Yeboah, Willian Carney and colleagues, with an educational charissa from [employer]. Physical exam (Primary Care) Vital Signs: Last Vital Signs Pulse 92 06/15/24 16:22 BP 102/70 06/15/24 16:22 Pulse Ox 97 06/15/24 16:22 Oxygen Delivery Method Room Air 06/15/24 16:22 BMI result Body Mass Index 28.5 Tobacco/Smoking Status: Tobacco use Status Tobacco use date assessed 02/21/24 06/15/24 16:19 Patient Tobacco Use Status Former Tobacco user 06/15/24 16:19 Tobacco use type Cigarette 06/15/24 16:19 e-Cigarette/Vaping Use Never Used 06/15/24 16:19 PHQ-9: PHQ-9 Score PHQ-9: Total score 0 06/15/24 16:19 Thrive Assessment: Date of Thrive Assessment Date Thrive assessed 06/12/24 06/15/24 16:19 Currently or been in a relationship where the following occur: No concerns reported Coding Level of Care Code Est Pt Prev Care 40-64y(51527) Diagnoses Routine physical examination Z00.00 Assessment & Plan Assessment & Plan (1) Routine physical examination: Code(s): Z00.00 - Encounter for general adult medical examination without abnormal findings Plan Patient is seen today for a routine physical. As part of this visit we reviewed the following issues, which are considered and essential part of preventative health in this age group: - Screening for colon cancer - Discussed Prostate cancer screening - Blood pressure screening - Cholesterol screening - Nutritional and exercise counseling - Counseling of injury prevention including fire prevention, smoke alarms and seat belt usage - Screening for depression - Education about skin cancer - Recommendations about immunizations - Recommendation of an eye exam - Screening for substance abuse Follow up in 6 months for a medication review. Orders: Orders TDaP Immunization Today Z23 - Encounter for immunization Medications: New Boostrix Tdap (diphth,pertus(acell),tetanus) 0.5 mL IM ONCE 0.5 mL 0RF NS Z23 - Encounter for immunization Refilled semaglutide (Ozempic) 2 mg (0.75 mL) subcut QWEEK 28 days 3 mL 5RF
[2024-06-15 16:22] VITALS: BP 102/70; PULSE 92; O2SAT 97; BMI 28.5
== END 2024-06-15 16:55 | disposition home or self-care (01) ==
PROVIDERS: PCP Family Medicine; Visit Provider Physician Assistant Medical
DX: Z23 Encounter for immunization (principal); Z00.00 Encounter for general adult medical examination without abnormal findings

== ENCOUNTER → 2024-06-15 16:06 | Outpatient (BNVA) | payer BC, SELFPAY | PROVIDERS: PCP Family Medicine; Visit Provider Physician Assistant Medical | DX: Z00.00 Encounter for general adult medical examination without abnormal findings (principal); Z23 Encounter for immunization | CPT/HCPCS: 90471; 90715; 96127 ==

== ENCOUNTER 2024-12-14 14:55 | Outpatient (AMB) | payer BC, SELFPAY ==
--- NOTE | 2024-12-14 15:06 | A.OFFPC_ITS ---
Vital Signs 12/14/24 15:10 Height 5 ft 11 in Weight 205 lb 2 oz BMI 28.6 BP 120/70 Blood Pressure Location Lt brachial Position Sitting Pulse 98 Pulse Source Pulse Oximeter Temp 97.9 F Temp Source Temporal Artery Scan Pulse Oximetry (%) 97 Oxygen Delivery Method Room Air Intake Visit Reasons: [facility] from [facility] /med review Intake Note: Transfer of Care. Medication Review. Allergies Seasonal Allergies Allergy (Mild, Verified 12/14/24 15:08) itchy, watery eyes Medication List - Last Reconciled 12/14/24 by ROBBIE Kendall atorvastatin 20 mg PO DAILY 90 days betamethasone valerate 0.1% 1 appl topical BID PRN 14 days glipizide ER 10 mg PO DAILY 30 days insulin glargine (Lantus Solostar U-100 Insulin) 22 units subcut QPM loratadine (Allergy Relief (loratadine)) 10 mg PO DAILY 90 days metformin ER 1,000 mg (2 x 500 mg) PO BID 90 days semaglutide (Ozempic) 2 mg (0.75 mL) subcut QWEEK 28 days Tobacco use date assessed: 12/14/24 Dental Screening Dental Screen Date: 12/14/24 Did you have a dental visit in the last 12 months?: Yes Did you have a dental problem in the last 6 months where you did not have access to dental care?: No Was dental information given to patient?: Patient has dentist HPI HPI Comments History of Present Illness Details This is a 59-year-old male with a past medical history of type 2 diabetes and hyperlipidemia presenting for a visit to [facility] care. Type II diabetes-followed by [facility] endocrinology. He is compliant with his medications. His most recent hemoglobin A1c was 6.3%. Exercising and following a healthy diet. Checks glucose in the morning (97-125) and noon (highest 120) and sometimes in the evening (average 180-210). No known micro/macrovascular complications. No hypertension. Colonoscopy done in April at [facility]. Due to suboptimal prep they recommended repeat in 5 years, per patient. I recommended pneumonia vaccine. He received the influenza vaccine and COVID-19 booster. Hyperlipidemia is treated with atorvastatin 20 mg daily. LDL is under 100. Patient is a nonsmoker. ROS: Constitutional: No unexplained weight loss, fever, chills, fatigue or night sweats. Eyes: No vision changes, blurry vision, double vision Respiratory: No shortness of breath, cough or sputum production. Cardiovascular: No chest pain, chest pressure or chest discomfort. No palpitations or pedal edema. Gastrointestinal: No anorexia, nausea, vomiting or diarrhea. No abdominal pain or blood in stool. Neurologic: No headache, dizziness or numbness or tingling in extremities. Endocrine: No cold or heat intolerance. No polyuria or polydipsia. Psychiatric: No depression or anxiety. No SI/HI. Physical exam: Constitutional: Alert, in no distress. Neck: Supple, Full range of motion. No lymphadenopathy. No palpable thyroid masses. Respiratory: Clear to auscultation. Cardiovascular: S1 S2 regular. No murmurs. . Extremities: Warm and well perfused. No clubbing, cyanosis or edema. Psychiatric: Normal mood and affect [facility] Medical History (Updated 06/15/24 @ 16:53 by ROBBIE Kendall) Uncontrolled diabetes mellitus with hyperglycemia No pertinent past medical history Surgical History History of tonsillectomy Family History (Updated 12/14/24 @ 15:10 by Judit Garsia MA) Father Diabetes Social History (Updated 12/14/24 @ 15:10 by Judit Garsia MA) Household Members: Spouse Housing: House Are you a primary managed care specialist to a significant other at home: No Do you presently have visiting nurse or other home services: No 75 years or older and lives alone: No Alcohol intake: current Patient Tobacco Use Status: Former Tobacco user Tobacco use type: Cigarette e-Cigarette/Vaping Use: Never Used Second Hand Smoke Exposure: No service: No Current occupational status: employed Current occupation: inventory control Current occupational exposures/hazards: No Cognitive needs: No Hearing needs: No Vision needs: No Questionnaire PHQ-9 Over the last 2 weeks, how often have you been bothered by any of the following problems? 1. Little interest or pleasure in doing things: not at all 2. Feeling down, depressed, or hopeless: not at all 3. Trouble falling or staying asleep, or sleeping too much: not at all 4. Feeling tired or having little energy: not at all 5. Poor appetite or overeating: not at all 6. Feeling bad about yourself - or that you are a failure or have let yourself or your family down: not at all 7. Trouble concentrating on things, such as reading the newspaper or watching television: not at all 8. Moving or speaking so slowly that other people could have noticed. Or the opposite - being so fidgety or restless that you have been moving around a lot more than usual: not at all 9. Thoughts that you would be better off or of hurting yourself in some way: not at all Total score: 0 Depression Screening Interpretation: Negative Depression Screening Done: Yes 18126 - PHQ-9 Billing: Yes Source: Developed by Drs. Chandrakant Vela, Laurel Yeboah, Willian Carney and colleagues, with an educational charissa from [employer]. Thrive Questionnaire Date Thrive assessed: 12/14/24 I am a: Patient What is your living situation today?: I have a steady place to live Within the past 12 months, did the food you bought not last and you didn't have the money to get more?: Never true Within the past 12 months, did you worry whether your food would run out before you got money to buy more?: Never true Do you have trouble paying for medicines?: No Do you have trouble getting transportation to medical appointments?: No Do you have trouble paying your heating and electricity bill?: No Do you have trouble taking care of your child, family member or friend?: No Do you have trouble with day-to-day activities such as bathing, preparing meals, shopping, managing finances, etc.?: No Are you currently unemployed and looking for a job?: No Are you interested in more education?: No Please select the resources that you would like help with: None Currently or been in a relationship where the following occur: No concerns reported THRIVE Score: 0 AUDIT C Alcohol Use Questionnaire (AUDIT-C) 1. How often do you have a drink containing alcohol?: 2-4 times a month 2. How many drinks containing alcohol do you have on a typical day when you are drinking?: 1 or 2 3. How often do you have six or more drinks on one occasion?: Monthly Total Score: 4 Score Reviewed/Action Taken: No YULI-7 AMB Questionnaire YULI-7 Date YULI - 7 assessed: 12/14/24 Feeling nervous, anxious, or on edge: 0 = Not at all Not being able to stop or control worryin = Not at all Worrying too much about different things: 0 = Not at all Trouble relaxin = Not at all Being so restless that it is hard to sit still: 0 = Not at all Becoming easily annoyed or irritable: 0 = Not at all Feeling afraid as if something awful might happen: 0 = Not at all Total YULI-7 score (0-4 normal; 5-9 mild; 10-14 moderate; 15-21 severe): 0 Source: Developed by Drs. Chandrakant Vela, Laurel Yeboah, Willian Carney and colleagues, with an educational charissa from [employer]. YULI-7 Assessment Billing YULI-7 Assessment Tool: YULI-7 Assessment 67503 Physical exam (Primary Care) Vital Signs: Last Vital Signs Temp 97.9 F 12/14/24 15:10 Pulse 98 12/14/24 15:10 BP 120/70 12/14/24 15:10 Pulse Ox 97 12/14/24 15:10 Oxygen Delivery Method Room Air 12/14/24 15:10 BMI result Body Mass Index 28.6 Tobacco/Smoking Status: Tobacco use Status Tobacco use date assessed 12/14/24 12/14/24 15:13 Patient Tobacco Use Status Former Tobacco user 12/14/24 15:10 Tobacco use type Cigarette 12/14/24 15:10 e-Cigarette/Vaping Use Never Used 12/14/24 15:10 PHQ-9: PHQ-9 Score PHQ-9: Total score 0 12/14/24 21:50 Depression Screening Interpretation: Negative Thrive Assessment: Date of Thrive Assessment Date Thrive assessed 12/14/24 12/14/24 15:13 Currently or been in a relationship where the following occur: No concerns repor mj Coding Level of Care Code Est Pt Level 4 (45396) Complex EM visit Add On G2211 Diagnoses Diabetes type 2, controlled E11.9 Hyperlipidemia E78.5 Additional Codes YULI-7 Assessment Billing - YULI-7 Assessment Tool: YULI-7 Assessment 41063 ([id number]) PHQ-9 - 53575 - PHQ-9 Billing: Yes ([id number]) Assessment & Plan Assessment & Plan (1) Diabetes type 2, controlled: Code(s): E11.9 - Type 2 diabetes mellitus without complications Category: Medical (2) Hyperlipidemia: Code(s): E78.5 - Hyperlipidemia, unspecified Category: Medical Plan Discussed pathophysiology of Type II Diabetes Mellitus with the patient in detail.? I explained the half-way risks and complications associated with uncontrolled diabetes including nephropathy, neuropathy, peripheral vascular disease, retinopathy, increased risk of heart disease and stroke.? Discussed lifestyle modification with the patient. Recommended 30 minutes of moderately vigorous exercise 5 days per week to promote weight loss. Continue regular eye exams. Vaccine recommendations reviewed. Continue current medication regimen. Declined CGM. Patient prefers to follow with me for DM management. I can refer back to endocrinology if glycemic control worsens. He will have labs drawn. Requests MMR titer given recent measles outbreaks. Continue statin for CVD risk reduction and HLD. Follow up in 3 months. Orders: Orders Lipid Panel Today E11.9 - Type 2 diabetes mellitus without complications, E78.5 - Hyperlipidemia, unspecified MMR IgG Measles Mumps Rubella Today Z01.84 - Encounter for antibody response examination Comprehensive Met. Panel Today E11.9 - Type 2 diabetes mellitus without complications Hemoglobin A1c Today E11.9 - Type 2 diabetes mellitus without complications Vitamin B12 Today E11.9 - Type 2 diabetes mellitus without complications, Z91.89 - Other specified personal risk factors, not elsewhere classified
[2024-12-14 15:10] VITALS: BP 120/70; PULSE 98; TEMP 36.6; O2SAT 97; BMI 28.6
--- OUTSIDE RECORDS SUMMARY | 2024-12-14 15:39 | XMS_ITS | Encounter Summary ---
Author Organization [employer] [facility] Address [address] [place] [address] Care Team Providers Care Commercial Leasing Agent Name Role Phone Lyndsay Sena MD Primary Care Provider [phone] Reason for Visit * Reason Comments Med Refill Encounter Details Date Type Department Care Team (Late st Contact Info) Description 09/14/2023 Refill [facility] MEDICAL [address] [place] [address] Lyndsay Sena MD [address] [place] [address] Hypertriglyceridemia Social History Tobacco Use Types Packs/Day Years Used Date Smoking Tobacco: Former Cigarettes Q uit: 10/20/2019 Sex and Gender Information Value Date Recorded Sex Assigned at Not on file Legal Sex Male 8:34 PM EDT Gender Identity Not on file Sexual Orientation Not on file documented as of this encounter Plan of Treatment Not on file documented as of this encounter Visit Diagnoses Diagnosis Hypertriglyceridemia Pure hyperglyceridemia documented in this encounter Care Teams Commercial Leasing Agent Relationship Specialty Start Date End Date Lyndsay Sena MD [address] [place] [address] PCP - General Internal Medicine 07/21/22 documented as of this encounter
--- OUTSIDE RECORDS SUMMARY | 2024-12-14 15:39 | XMS_ITS | Encounter Summary ---
Author Organization [employer] Address [address] [place] [address] Care Team Providers Care Steam Flattener Name Role Phone Lyndsay Sena MD Primary Care Provider [phone] Encounter Details Date Type Department Care Team (Latest Contact Info) Description 01/07/2022 [facility] Dental, Provider, DDS Social History Tobacco Use Types Packs/Day Years Used Date Smoking Tobacco: Never Assessed Sex and Gender Information Value Date Recorded Sex Assigned at Not on file Legal Sex Male 8:34 PM EDT Gender Identity Not on file Sexual Orientation Not on file documented as of this encounter Plan of Treatment Not on file documented as of this encounter Visit Diagnoses Not on filedocumented in this encounter Care Teams Steam Flattener Relationship Specialty Start Date End Date Lyndsay Sena MD [address] [place] [address] PCP - General Internal Medicine 07/21/22 documented as of this encounter
--- OUTSIDE RECORDS SUMMARY | 2024-12-14 15:39 | XMS_ITS | Encounter Summary ---
Author Organization [employer] Address [address] [place] [address] Care Team Providers Care Desktop Support Consultant Name Role Phone Lyndsay Sena MD Primary Care Provider [phone] Encounter Details Date Type Department Care Team (Latest Contact Info) Description 07/04/2021 [facility] Dental, Provider, DDS Social [...] on filedocumented in this encounter Care Teams Desktop Support Consultant Relationship Specialty Start Date End Date Lyndsay Sena MD [address] [place] [address] PCP - General Internal Medicine 07/21/22 documented as of this encounter
--- OUTSIDE RECORDS SUMMARY | 2024-12-14 15:39 | XMS_ITS | Clinical Summary ---
Author Organization [employer] Address [address] [place] [address] [address] [place] [address] Care Team Providers Care Public School Teacher Name Role Phone Lyndsay Sena MD Primary Care Provider [phone] Allergies Active Allergy Reactions Criticality Noted Date Comments Other Unknown 01/18/2023 Seasonal allergies Medications diphenhydrAMIN E (Benadryl Allergy) 25 MG capsule 1 capsule. Active naproxen sodium (Aleve) 220 MG tablet 1 tablet in the morning and 1 tablet in the evening. Active ondansetron (Zofran) 4 MG tablet 1 tablet. 2 Active Trulicity 1.5 MG/0.5ML solution pen-injectorIn dications:Type 2 diabetes mellitus without complication, without long-term current use of insulin ([facility]) INJECT 1 PEN SUBCUTANEOUSLY ONCE A WEEK 8 mL 3 Active metFORMIN XR (Glucophage-XR ) 500 MG 24 hr tablet Take 2 tablets by mouth twice daily 240 tablet 4 Active atorvastatin (Lipitor) 20 MG tabletIndicati ons:Hypertrigl yceridemia Take 1 tablet by mouth once daily 30 tablet 4 Active Active Problems Problem Noted Date Diagnosed Date Diabetes mellitus type 2, uncomplicated 11/11/19 23 Hypertriglyceridemia 11/10/2022 Immunizations Immunization Administration Dates Next Due Influenza, Split (incl. purified surface antigen ) 06/13/2012 Pola SARS-CoV-2 Vaccination 11/07/2020 Pneumococcal Polysaccharide PPSV23 08/31/2012 Tdap 03/12/2016,08/31/2012 Social History Tobacco Use Types Packs/Day Years Used Date Smoking Tobacco: Former Cigarettes Q uit: 10/20/2019 Tobacco Cessation:Counseling Given: Not Answered Sex and Gender Information Value Date Recorded Sex Assigned at Not on file Legal Sex Male 8:34 PM EDT Gender Identity Not on file Sexual Orientation Not on file Last Filed Vital Signs Vital Sign Reading Time Taken Comments Blood Pressure 136/74 05/30/2021 3:00 PM EDT Pulse 102 05/30/2021 3:00 PM EDT Temperature - - Respiratory Rate - - Oxygen Saturation - - Inhaled Oxygen Concentration - - Weight 89.8 kg (198 lb) 05/30/2021 3:00 PM EDT Height 171.5 cm (5' 7.5 ) 05/30/2021 3:00 PM EDT Body Mass Index 30.55 05/30/2021 3:00 PM EDT Plan of Treatment Health Maintenance Due Date Last Done Comments CT Colonography 1964 Depression Screening 1964 FIT DNA/Cologuard 1964 FIT 1964 FOBT 1964 Sigmoidoscopy 1964 Alcohol/Substance Use Screening 1976 Tobacco Screening 1976 Pneumococcal Vaccine: 50+ Years (2 of 2 - PCV) 2014 08/31/2012 Zoster Vaccines (1 of 2) 2014 COVID-19 Vaccine (2 - 2023-2 5 season) 2024 11/07/2020 Influenza Vaccine (#1) 2024 06/13/2012 DTaP/Tdap/Td Vaccines (3 - T d or Tdap) 03/12/2026 03/12/2016, 08/31/2012 Lipid Panel 01/07/2027 01/07/2022, 07/08/2020 Colonoscopy 06/18/2027 06/18/2017, 06/18/2017 Colorectal Cancer Screening 06/18/2027 RSV Patients and Patients Aged 60 years or older (1 - 1-dose 75+ series) 10/20/2039 Pneumococcal Vaccine: Pediatrics (0 to 5 Years) and At-Risk Patients (6 to 49) Years) Aged Out 08/31/2012 No longer eligible b ased on patient's age to complete this topic HIB Vaccines Aged Out No longer eligi ble based on patient's age to complete this topic HPV Vaccines Aged Out No longer eligi ble based on patient's age to complete this topic Hepatitis A Vaccines Aged Out No long er eligible based on patient's age to complete this topic Hepatitis B Vaccines Aged Out No long er eligible based on patient's age to complete this topic IPV Vaccines Aged Out No longer eligi ble based on patient's age to complete this topic Meningococcal Vaccine Aged Out No rc anlaia eligible based on patient's age to complete this topic RSV under 20 months Aged Out No longe r eligible based on patient's age to complete this topic Rotavirus Vaccines Aged Out No longer eligible based on patient's age to complete this topic Procedures Procedure Name Priority Date/Time Associated Diagnosis Comments LIPID PANEL, STANDARD Routine 01/07/2022 2:47 PM EDT COLONOSCOPY Routine 06/18/2017 12:00 AM EST from Last 3 Months or Most Recently Relevant to Health Maintenance Results * (ABNORMAL) -Lipid Panel (01/07/2022 2:47 PM EDT) LDL CHOLESTEROL, CALCULATED 47 (0-130) MG/DL [facility] CHOLESTEROL, TOTAL 122 (<200) MG/DL [facility] HDL CHOL 36(L) (>39) MG/DL [facility] NON HDL CHOLESTEROL (CALC) 86 (<160) MG/DL [facility] TRIGLYCERIDE 196(H) (<150) MG/DL [facility] 01/07/2022 2:47 PM EDT Lyndsay Sena MD LAB BLOOD ORDERABLES Final Resul t [facility] [address] * COLONOSCOPY: [facility] (06/18/2017 12:00 AM EST) Anatomical Region Laterality Modality Endoscopy 06/18/2017 Narrative 06/18/2017 12:00 AM EST Refer to Fovea for result details Legacy Procedure: COLONOSCOPY: [facility] Procedure Note Provider, MD Monty - 11/26/2022 Refer to Fovea for result details Legacy Procedure: COLONOSCOPY: [facility] us Monty Provider ENDOSCOPY PROCEDURE ORDER GURU Final Result from Last 3 Months or Most Recently Relevant to Health Maintenance Care Teams Public School Teacher Relationship Specialty Start Date End Date Lyndsay Sena MD [address] [place] [address] PCP - General Internal Medicine 07/21/22
--- OUTSIDE RECORDS SUMMARY | 2024-12-14 15:39 | XMS_ITS | Continuity of Care Document ---
Author Organization [facility] Address [address] [place] [address] Phone [phone] Care Team Providers Care Commercial Journeyman Electrician Name Role Phone Darek Zhou MD Care Team Information Process Mechanic [phone] Problems Active Problems Provider Date Type 2 diabetes mellitus ROBBIE Tran Onse t: 09/23/2023 Social History Type Date Description Comments Sex Unknown ETOH Use Occasionally consumes alcoho l Tobacco Use Start: Unknown End: Unknown Patient is a former smoker Allergies and adverse reactions Description No Known Drug Allergies Medications Active Medications SIG Qnty Indications Order ing Provider Date Ozempic (0.25 Or 0.5 MG/Dose)2mg/3ML Solution Pen-Inject inject 2 mg under the skin once weekly dx: e11.9 3ml Emely Hdez M.D. 12/23/2023 Lantus [id number]/ML Solution Pen-Inject Inject 16 To 26 Units Subcutaneously Once Daily 12units E11Jake Hdez M.D. 09/23/2023 BD Pen Needle/Rama 2ND Gen/32G X 4mm32G X 4 mm Misc 1 pen needle to insuling pen 4 times a day dx:e11.9 300units E11Jake Hdez M.D. 09/23/2023 Atorvastatin Avflcih78hx Tablets Take 1 Tablet By Mouth Once Daily Lyndsay Sena M.D. Metformin HCL [id number] Tablets ER 24HR Take 2 Tablets By Mouth Twice Daily Unknown Glipizide ER10mg Tablets ER 24HR Take 1 Tablet By Mouth Once Daily Darek Zhou MD [id number] Tablets 1 by mouth every day Unknown 00/0 000 Vital Signs Date Vital Result Comment 10/09/2024 3:26pm BP Systolic 124 mmHg BP Diastolic 80 mmHg Heart Rate 102 /min Height 71 inches 5'11 Weight 209.50 lb BMI (Body Mass Index) 29.2 kg/m2 Results Test Acquired Date Facility Test Result H/L Range Note Glucose Fingerstick 10/09/2024 Inhouse Glucose Fingerstick 92 Hemoglobin A1c 10/09/2024 Inhouse Hemoglobin A1c 6.2% Glucose Fingerstick 06/27/2024 Inhouse Glucose Fingerstick 101 Hemoglobin A1c 06/27/2024 Inhouse Hemoglobin A1c 6.1% Henry-65 Autoantibody 03/30/2024 [facility] Henry-65 Autoantibody <5.0 U/mL 0.0-5.0 Glucose Fingerstick 03/30/2024 Inhouse Glucose Fingerstick 97 Glucose Fingerstick 12/23/2023 Inhouse Glucose Fingerstick 87 Albumin/Creatini ne Ratio, Random Urine 10/18/2023 [facility] Creatinine, Urine 73.9 mg/dL Not Estab. Albumin, Urine <3.0 ug/mL Not Estab. Alb/Creat Ratio <4 mg/gcreat 0-29 1 Vitamin B12 10/18/2023 [facility] Vitamin B12 467 pg/mL 232-1245 Glucose Fingerstick 10/18/2023 Inhouse Glucose Fingerstick 110 Hemoglobin A1c 10/18/2023 Inhouse Hemoglobin A1c 7.9% TSH With Reflex To FT4 09/23/2023 [facility] TSH With Reflex To FT4 1.12 uIU/mL (0.4-4.2) Glucose Fingerstick 09/23/2023 Inhouse Glucose Fingerstick 177 1 Normal: 0 - 29 Moderately increased: 30 - 300 Severely increased: >300 Medical Devices Description No Information Available Encounters Type Date Location Provider Dx Diagnosis Office Visit 10/09/2024 3:15p Main Office ROBBIE Tran E11.9 Type 2 diabet es mellitus without complications Z79.4 ocean transportation intermediary (current) use of insulin Assessments Date Code Description Provider 10/09/2024 E11.9 Type 2 diabetes mellitus wit hout complications ROBBIE Tran 10/09/2024 Z79.4 ocean transportation intermediary (current) use of i nsulin ROBBIE Tran Plan of Treatment Future Appointment(s):* 04/12/2025 3:30 pm - ROBBIE Tran at Main Office 10/09/2024 - ROBBIE Tran* E11.9 Type 2 diabetes mellitus without complications * Z79.4 group home (current) use of insulin Functional Status Description No Information Available Mental Status Description No Information Available Referrals Description No Information Available
--- OUTSIDE RECORDS SUMMARY | 2024-12-14 15:39 | XMS_ITS | Encounter Summary ---
Author Organization [employer] Address [address] [place] [address] [place] [address] Care Team Providers Care Improvement Director Name Role Phone Lyndsay Sena MD Primary Care Provider [phone] Encounter Details Date Type Department Care Team (Latest Contact Info) Description 07/17/2020 [facility] CONVERSION[facility] Dental, Provider, DDS Social [...] on filedocumented in this encounter Care Teams Improvement Director Relationship Specialty Start Date End Date Lyndsay Sena MD [address] [place] [address] PCP - General Internal Medicine 07/21/22 documented as of this encounter
--- OUTSIDE RECORDS SUMMARY | 2024-12-14 15:40 | XMS_ITS | Encounter Summary ---
Author Organization [employer] Address [address] [place] [address] [address] [place] [address] Care Team Providers Care Domestic Freight Forwarder Name Role Phone Lyndsay Sena MD Primary Care Provider [phone] Encounter Details Date Type Department Care Team (Latest Contact Info) Description 12/19/2018 [facility] CONVERSIONS Dental, Provider, DDS Social [...] on filedocumented in this encounter Care Teams Domestic Freight Forwarder Relationship Specialty Start Date End Date Lyndsay Sena MD [address] [place] [address] PCP - General Internal Medicine 07/21/22 documented as of this encounter
== END 2024-12-14 15:47 | disposition home or self-care (01) ==
LOC: HO.HMCFM 14:56
PROVIDERS: PCP Physician Assistant Medical; Visit Provider Physician Assistant Medical
DX: E11.9 Type 2 diabetes mellitus without complications (principal); E78.5 Hyperlipidemia, unspecified

== ENCOUNTER → 2024-12-14 14:55 | Outpatient (BNVA) | payer BC, SELFPAY | PROVIDERS: PCP Family Medicine; Visit Provider Physician Assistant Medical | DX: E11.9 Type 2 diabetes mellitus without complications (principal); E78.5 Hyperlipidemia, unspecified; Z91.89 Other specified personal risk factors, not elsewhere classified | CPT/HCPCS: 96127 ==

== ENCOUNTER 2025-01-10 07:30 | Outpatient (REF) | payer BC, SELFPAY ==
--- OUTSIDE RECORDS SUMMARY | 2025-01-10 07:32 | XMS_ITS | Clinical Summary ---
Author Organization [employer] Address [address] [place] [address] [address] [place] [address] Care Team Providers Care Cut And Print Machine Operator Name Role Phone Lyndsay Sena MD Primary Care Provider [phone] Allergies Active Allergy Reactions Criticality Noted Date [...] complication, without long-term current use of insulin ([facility]) INJECT 1 PEN SUBCUTANEOUSLY ONCE A WEEK [...] 1964 FIT 1964 FOBT 1964 Sigmoidoscopy 1964 Disability Screening 1964 Alcohol/Substance Use Screening 1976 Tobacco Screening 1976 Pneumococcal Vaccine: 50+ Years (2 of 2 - PCV) 2014 08/31/2012 Zoster Vaccines (1 of 2) 2014 COVID-19 Vaccine (2 - 2023-2 5 season) 2024 11/07/2020 Influenza Vaccine (Season Ended) 2025 06/13/2012 DTaP/Tdap/Td Vaccines (3 - T d or Tdap) 03/12/2026 03/12/2016, 08/31/2012 Lipid Panel 01/07/2027 01/07/2022, 07/08/2020 Colonoscopy 06/18/2027 06/18/2017, 06/18/2017 Colorectal Cancer Screening 06/18/2027 RSV Patients and Patients Aged 60 years or older (1 - 1-dose 75+ series) 10/20/2039 HIB Vaccines Aged Out No longer eligi [...] patient's age to complete this topic Meningococcal B Vaccine Aged Out No l onger eligible based on patient's age to complete this topic Meningococcal Vaccine Aged Out No rc analia eligible based on patient's age to complete [...] [facility] 01/07/2022 2:47 PM EDT us Lyndsay Sena MD LAB BLOOD ORDERABLES Final Resul t [facility] [address] * COLONOSCOPY: [facility] (06/18/2017 12:00 AM EST) Anatomical Region Laterality Modality Endoscopy 06/18/2017 Narrative 06/18/2017 12:00 AM EST Refer to Fovea for result details Legacy Procedure: COLONOSCOPY: [facility] Procedure Note Provider, MD Monty - 11/26/2022 Refer to Fovea for result details Legacy Procedure: COLONOSCOPY: [facility] us Monty Provider ENDOSCOPY PROCEDURE ORDER GURU Final Result from Last 3 Months or Most Recently Relevant to Health Maintenance Care Teams Cut And Print Machine Operator Relationship Specialty Start Date End Date Lyndsay Sena MD [address] [place] [address] PCP - General Internal Medicine 07/21/22
[2025-01-10 11:48] LABS: Estimated Average Glucose 134 mg/dL; Hemoglobin A1c % 6.3 % (<6.0)
[2025-01-10 11:53] LABS: Alanine Aminotransferase 24 U/L (0-40); Albumin Level 4.6 g/dL (3.5-5.0); Alkaline Phosphatase 62 U/L (39-117); Anion Gap 10 (12-20); Aspartate Amino Transferase 23 U/L (5-37); Bilirubin Total 0.4 mg/dL (0.0-1.0); Blood Urea Nitrogen 12 mg/dL (9-16); Calcium 10.2 mg/dL (8.4-10.2); Carbon Dioxide 26 mmol/L (22-29); Chloride 105 mmol/L (96-108); Cholesterol 100 mg/dL (<200); Estimated Glomerular Filt Rate > 60; Glucose Random 153 mg/dL (60-115); HDL Cholesterol 34 mg/dL (>40); LDL Cholesterol Calculated 27 mg/dL (<100); Potassium 4.3 mmol/L (3.3-5.1); Sodium 137 mmol/L (135-145); Total Protein 6.9 g/dL (6.5-8.0); Triglycerides 197 mg/dL (<150)
[2025-01-10 12:15] LABS: Vitamin B12 345 pg/mL (200-900)
[2025-01-11 05:28] LABS: Rubella IgG Antibody 8.81 Index
== END 2025-01-10 07:31 | disposition home or self-care (01) ==
LOC: HO.WFDLDS 07:30
PROVIDERS: Visit Provider Physician Assistant Medical
DX: E78.5 Hyperlipidemia, unspecified (principal); E11.9 Type 2 diabetes mellitus without complications; Z01.84 Encounter for antibody response examination; Z91.89 Other specified personal risk factors, not elsewhere classified
CPT/HCPCS: 36415; 80053; 80061; 82607; 83036; 86735; 86762; 86765

== ENCOUNTER 2025-03-19 15:08 | Outpatient (AMB) | payer BC, SELFPAY ==
--- NOTE | 2025-03-19 15:20 | MHC.PC.OV ---
Vital Signs 03/19/25 15:23 Height 5 ft 11 in Weight 203 lb BMI 28.3 BP 116/68 Blood Pressure Location Rt brachial Position Sitting Pulse 97 Pulse Source Pulse Oximeter Temp 97.9 F Temp Source Temporal Artery Scan Pulse Oximetry (%) 95 Oxygen Delivery Method Room Air Intake Visit Reasons: Type II diabetes Intake Note: Jose presents in the office today for his diabetes. Allergies Seasonal Allergies Allergy (Mild, Verified 03/19/25 15:21) itchy, watery eyes Tobacco use date assessed: 03/19/25 Dental Screening Dental Screen Date: 03/19/25 Did you have a dental visit in the last 12 months?: Yes Did you have a dental problem in the last 6 months where you did not have access to dental care?: No Was dental information given to patient?: Patient has dentist HPI HPI Comments History of Present Illness Details This is a 59-year-old male with a past medical history of type 2 diabetes and hyperlipidemia presenting for follow up. Type II diabetes-his hemoglobin A1c is 6.2% today. He forgot his glucometer, but he is compliant with glucose monitoring. He does not want a CGM. Exercising and following a healthy diet. He has lost a few lb since his last visit. No known micro/macrovascular complications. No hypertension. Reports lowest sugar 76. Highest 290 when he had cookies and eclairs. Denies symptoms associated with hypo and hyperglycemia. Colonoscopy done in April 2024 at [facility]. Due to suboptimal prep they recommended repeat in 5 years, per patient. Hyperlipidemia is treated with atorvastatin 20 mg daily. LDL is under 100. Patient is a nonsmoker. He will receive the influenza vaccine this fall. ROS: Constitutional: No unexplained weight loss, fever, chills, fatigue or night sweats. Eyes: No vision changes, blurry vision, double vision Respiratory: No shortness of breath, cough or sputum production. Cardiovascular: No chest pain, chest pressure or chest discomfort. No palpitations or pedal edema. Gastrointestinal: No anorexia, nausea, vomiting or diarrhea. No abdominal pain or blood in stool. Neurologic: No headache, dizziness or numbness or tingling in extremities. Endocrine: No cold or heat intolerance. No polyuria or polydipsia. Physical exam: Constitutional: Alert, in no distress. Neck: Supple, Full range of motion. No lymphadenopathy. No palpable thyroid masses. Respiratory: Clear to auscultation. Cardiovascular: S1 S2 regular. No murmurs. . Extremities: Warm and well perfused. No clubbing, cyanosis or edema. Psychiatric: Normal mood and affect [facility] Medical History (Updated 06/15/24 @ 16:53 by ROBBIE Kendall) Uncontrolled diabetes mellitus with hyperglycemia No pertinent past medical history Surgical History History of tonsillectomy Family History Father Diabetes Social History (Updated 03/19/25 @ 15:23 by Judit Garsia MA) Household Members: Spouse Housing: House Are you a primary director critical care to a significant other at home: No Do you presently have visiting nurse or other home services: No 75 years or older and lives alone: No Alcohol intake: current Patient Tobacco Use Status: Former Tobacco user Tobacco use type: Cigarette e-Cigarette/Vaping Use: Never Used Second Hand Smoke Exposure: No Use of substances other than those prescribed or required for medical reasons: No service: No Current occupational status: employed Current occupation: inventory control Current occupational exposures/hazards: No Cognitive needs: No Hearing needs: No Vision needs: No Questionnaire Thrive Questionnaire Date Thrive assessed: 12/07/24 I am a: Patient What is your living situation today?: I have a steady place to live Within the past 12 months, did the food you bought not last and you didn't have the money to get more?: Never true Within the past 12 months, did you worry whether your food would run out before you got money to buy more?: Never true Do you have trouble paying for medicines?: No Do you have trouble getting transportation to medical appointments?: No Do you have trouble paying your heating and electricity bill?: No Do you have trouble taking care of your child, family member or friend?: No Do you have trouble with day-to-day activities such as bathing, preparing meals, shopping, managing finances, etc.?: No Are you currently unemployed and looking for a job?: No Are you interested in more education?: No Please select the resources that you would like help with: None Currently or been in a relationship where the following occur: No concerns reported THRIVE Score: 0 YULI-7 AMB Questionnaire YULI-7 Date YULI - 7 assessed: 12/14/24 Source: Developed by DrsBeth Vela, Laurel Yeboah, Willian Carney and colleagues, with an educational charissa from [employer]. Physical exam (Primary Care) Vital Signs: Last Vital Signs Temp 97.9 F 03/19/25 15:23 Pulse 97 03/19/25 15:23 BP 116/68 03/19/25 15:23 Pulse Ox 95 03/19/25 15:23 Oxygen Delivery Method Room Air 03/19/25 15:23 BMI result Body Mass Index 28.3 Tobacco/Smoking Status: Tobacco use Status Tobacco use date assessed 03/19/25 03/19/25 15:27 Patient Tobacco Use Status Former Tobacco user 03/19/25 15:23 Tobacco use type Cigarette 03/19/25 15:23 e-Cigarette/Vaping Use Never Used 03/19/25 15:23 Thrive Assessment: Date of Thrive Assessment Date Thrive assessed 12/07/24 03/19/25 15:20 Currently or been in a relationship where the following occur: No concerns reported Results AMB Hemoglobin A1c AMB Hemoglobin A1c 6.2 % Last Edit by Judit Garsia MA on 03/19/25 15:41 Results Reviewed Results Reviewed: Laboratory Last Values Hgb A1c (Clinic) 6.2 % (4.0-6.0) H 03/19/25 15:28 Coding Level of Care Code Est Pt Level 4 (32854) Complex EM visit Add On G2211 Diagnoses Diabetes type 2, controlled E11.9 Hyperlipidemia E78.5 Assessment & Plan Assessment & Plan (1) Diabetes type 2, controlled: Code(s): E11.9 - Type 2 diabetes mellitus without complications Category: Medical (2) Hyperlipidemia: Code(s): E78.5 - Hyperlipidemia, unspecified Category: Medical Plan Discussed pathophysiology of Type II Diabetes Mellitus with the patient in detail.? I explained the custodial risks and complications associated with uncontrolled diabetes including nephropathy, neuropathy, peripheral vascular disease, retinopathy, increased risk of heart disease and stroke.? Discussed lifestyle modification with the patient. Recommended 30 minutes of moderately vigorous exercise 5 days per week to promote weight loss. Continue regular eye exams. Vaccine recommendations reviewed. Continue current medication regimen. Declined CGM. Continue statin for CVD risk reduction and HLD. Follow up in 3 months for a physical exam. Orders: Orders AMB Hemoglobin A1c Today E11.9 - Type 2 diabetes mellitus without complications Lipid Panel 3 Months E11.9 - Type 2 diabetes mellitus without complications, E78.5 - Hyperlipidemia, unspecified Complete Blood Count no Diff 3 Months E11.9 - Type 2 diabetes mellitus without complications Comprehensive Met. Panel 3 Months E11.9 - Type 2 diabetes mellitus without complications Prostate Specific Antigen 3 Months E11.9 - Type 2 diabetes mellitus without complications, Z12.5 - Encounter for screening for malignant neoplasm of prostate Vitamin B12 3 Months E11.9 - Type 2 diabetes mellitus without complications, Z91.89 - Other specified personal risk factors, not elsewhere classified Hemoglobin A1c 3 Months E11.9 - Type 2 diabetes mellitus without complications, R73.9 - Hyperglycemia, unspecified Medications: Changed From insulin glargine (Lantus Solostar U-100 Insulin) 22 units subcut QPM To insulin glargine (Lantus Solostar U-100 Insulin) 22 units (0.22 mL) subcut QPM 19.8 mL 3RF 90 days From semaglutide (Ozempic) 2 mg (0.75 mL) subcut QWEEK 3 mL 5RF To semaglutide (Ozempic) 2 mg (0.75 mL) subcut QWEEK 9 mL 3RF 84 days Refilled glipizide ER 10 mg PO DAILY 90 tabs 3RF atorvastatin 20 mg PO DAILY 90 tabs 3RF 90 days metformin ER 1,000 mg (2 x 500 mg) PO BID 360 tabs 3RF 90 days
[2025-03-19 15:23] VITALS: BP 116/68; PULSE 97; TEMP 36.6; O2SAT 95; BMI 28.3
--- OUTSIDE RECORDS SUMMARY | 2025-03-19 15:43 | XMS_ITS | Continuity of Care Document ---
Author Organization [facility] Address [address] [place] [address] Phone [phone] Care Team Providers Care Nut Process Helper Name Role Phone Darek Zhou MD Care Team Information Ambulatory Services Representative [phone] Problems Active Problems Provider Date Type 2 diabetes mellitus ROBBIE Tran Onse t: 09/23/2023 Social History Type Date Description Comments Sex Male Sex Unknown ETOH Use Occasionally consumes alcoho l Tobacco Use Start: Unknown End: Unknown Patient is a former smoker Allergies and adverse reactions Description No Known Drug Allergies Medications Active Medications SIG Qnty Indications Order ing Provider Date Ozempic (0.25 Or 0.5 MG/Dose)2mg/3ML Solution Pen-Inject inject 2 mg under the skin once weekly dx: e11.9 3ml Emely Hdez M.D. 12/23/2023 Lantus [id number]/ML Solution Pen-Inject Inject 16 To 26 Units Subcutaneously Once Daily 12units Sanchez Hdez M.D. 09/23/2023 BD Pen Needle/Rama 2ND Gen/32G X 4mm32G X 4 mm Misc 1 pen needle to insuling pen 4 times a day dx:e11.9 300units E11Jake Hdez M.D. 09/23/2023 Atorvastatin [id number] Tablets Take 1 Tablet By Mouth Once Daily Lyndsay Sena M.D. Metformin HCL [id number] Tablets ER 24HR Take 2 Tablets By Mouth Twice Daily Unknown Glipizide ER10mg Tablets ER 24HR Take 1 Tablet By Mouth Once Daily Darek Zhou MD [id number] Tablets 1 by mouth every day Unknown /0 000 Vital Signs Date Vital Result Comment [...] 7.9% TSH With Reflex To FT4 09/23/2023 [facility] Lab TSH With Reflex To FT4 1.12 uIU/mL (0.4-4.2) Glucose Fingerstick 09/23/2023 Inhouse Glucose Fingerstick 177 1 Normal: 0 - 29 Moderately increased: 30 - 300 Severely increased: >300 Medical Devices Description No Information Available Encounters Type Date Location Provider Dx Diagnosis Office Visit 10/09/2024 3:15p Main Office ROBBIE Tran E11.9 Type 2 diabet es mellitus without complications 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
--- OUTSIDE RECORDS SUMMARY | 2025-03-19 15:43 | XMS_ITS | Encounter Summary ---
Author Organization [facility] Address [address] [place] [id number] Phone Care Team Providers Care Center Sales And Service Associate Name Role Phone Lyndsay Sena MD Primary Care Provider [phone] Darek Zhou MD Primary Care Provider Encounter Details Date Type Department Care Team (Late st Contact Info) Description 06/18/2017 Procedure Pass [facility] Endoscopy Admitting Dept Virtual Department [address] [place] [address] Social History Tobacco Use Types Packs/Day Years Used Date Smoking Tobacco: Light Smoker Smokeless Tobacco: Never Alcohol Use Standard Drinks/Week Comments Yes 1 (1 standard drink = 0.6 oz pur e alcohol) Sex and Gender Information Value Date Recorded Sex Assigned at Not on file Legal Sex Male 11:09 AM EDT Gender Identity Not on file Sexual Orientation Not on file documented as of this encounter Plan of Treatment Not on file documented as of this encounter Visit Diagnoses Not on filedocumented in this encounter Care Teams Center Sales And Service Associate Relationship Specialty Start Date End Date Lyndsay Sena MD [address] [place] [address] PCP - General Internal Medicine 06/18/17 03/26/24 Darek Zhou MD [address] [place] [address] PCP - General Family Medicine 03/27/24 documented as of this encounter Additional Source Comments The information contained in this document represents components of the legal health record. It is not the complete legal health record.[facility]
--- OUTSIDE RECORDS SUMMARY | 2025-03-19 15:43 | XMS_ITS | Encounter Summary ---
Author Organization [employer] Address [address] [place] [address] Care Team Providers Care Passenger Service Agent Name Role Phone Lyndsay Sena MD Primary Care Provider [phone] Encounter Details Date Type Department Care Team [...] on filedocumented in this encounter Care Teams Passenger Service Agent Relationship Specialty Start Date End Date Lyndsay Sena MD [address] [place] [address] PCP - General Internal Medicine 07/21/22 documented as of this encounter
== END 2025-03-19 16:06 | disposition home or self-care (01) ==
LOC: HO.HMCFM 15:09
PROVIDERS: PCP Physician Assistant Medical; Visit Provider Physician Assistant Medical
DX: E11.9 Type 2 diabetes mellitus without complications (principal); E78.5 Hyperlipidemia, unspecified

== ENCOUNTER → 2025-03-19 15:08 | Outpatient (BNVA) | payer BC, SELFPAY | PROVIDERS: PCP Physician Assistant Medical; Visit Provider Physician Assistant Medical | DX: E11.9 Type 2 diabetes mellitus without complications (principal); E78.5 Hyperlipidemia, unspecified | CPT/HCPCS: 83036 ==